=== PATIENT | female | born 1965 | race Caucasian/White ===

== ENCOUNTER 2016-08-24 08:10 | Emergency (ER) | payer BC ==
--- NOTE | 2016-08-24 09:44 | ED CLINICAL REPORT ---
Clinical Report - Physicians/Mid Levels [facility] [address] [place] [address] 08/24/2016 8:12 Patient: CAREY MORENO Time Seen: 08:21; initial patient contact. Arrived- By private vehicle. Historian- patient. HISTORY OF PRESENT ILLNESS Chief Complaint: CHEST PAIN. It is described as aching and it is described as located in the central chest area. No radiation. At its maximum, severity described as moderate. When seen in the E.D., severity described as moderate. Modifying factors- worsened by cough and deep breaths. Relieved by rest. This started yesterday and is still present. It was gradual in onset and has been intermittent. Onset during light activity. No nausea, vomiting, difficulty breathing or diaphoresis. Similar symptoms previously: None. Recent medical care: Not recently seen/assessed. REVIEW OF SYSTEMS The patient has had nasal congestion, a runny nose, a sore throat, fever and chills. She has had a cough and sinus pain. No pedal edema or difficulty breathing. All systems otherwise negative, except as recorded above. PAST HISTORY Abdominal Pain. Diarrhea. Immunizations. LNMP - Last Normal Menstrual Period. Anxiety Reaction. Depression. Headache. Sinus Problems. Angioplasty . ADDITIONAL SURGERIES: Angioplasty of blood vessel. Carpal Tunnel Surgery. Foot surgery. Medications: Atorvastatin Calcium Oral. Cefuroxime Axetil Oral. Cymbalta Oral. Eszopiclone Oral. Isosorbide Dinitrate ER Oral. Nitro-Time Oral. Pramipexole Dihydrochloride Oral. Lipitor Oral. Allergies: Sulfa Antibiotics. SOCIAL HISTORY Former smoker, end date 2016. ADDITIONAL NOTES The nursing notes have been reviewed with agreement regarding the chief complaint, PMH and patient medications and allergies. PHYSICAL EXAM Appearance: Alert. Oriented X3. No acute distress. Eyes: Eyes normal inspection. ENT: Moderate generalized pharyngeal erythema with right tonsillar swelling and left tonsillar swelling. The mucous membranes are not dry. Neck: No lymphadenopathy. CVS: Normal heart rate and rhythm. Heart sounds normal. Respiratory: No respiratory distress. Chest pain reproducible with palpation of the costal cartilage and with deep breathing. Moderate right upper costochondral tenderness and left upper costochondral tenderness. The tenderness reproduces the patient's subjective complaint. Breath sounds normal. Abdomen: Soft and nontender. Bowel sounds normal. No mass. Skin: Skin warm and dry. Normal skin color. No rash. Extremities: No calf tenderness. No lower extremity edema. LABS, X-RAYS, AND EKG EKG: EKG time: (0851). No acute process. No acute ischemia. Normal EKG. Normal sinus rhythm. Rate: 82. Normal P waves. Normal MOSES. Normal QRS complex. Normal axis. Normal ST and T waves, QT and QTc. Prior EKG unavailable. The study has been interpreted contemporaneously by me. The study has been independently viewed by me. The EKG appears to be a good tracing. Interpretation time: 0851. Laboratory Tests: Culture, Strep Screen: (JUANJOSE: 08/24/2016 08:30) ( MsgRcvd 08/24/2016 09:32) Final results Test Result Flag Units (Reference) RAPID STREP SCREEN - THROAT DATE: 08/24/16 NEGATIVE SCREEN: RAPID STREP SCREEN NEGATIVE; CONFIRMATION TO FOLLOW Rapid Influenza Screen: (JUANJOSE: 08/24/2016 08:30) ( [facility] 08/24/2016 09:36) Final results SPECIMEN DESCRIPTION: ... Test Result Flag Units (Reference) RAPID INFLUENZA SCREEN DATE: 08/24/16 INFLUENZA A: NEGATIVE SCREEN FOR INFLUENZA A INFLUENZA B: NEGATIVE SCREEN FOR INFLUENZA B . PROGRESS AND PROCEDURES Course of Care: 08/24/2016 09:48 O2 saturation: 96%. Vital Signs: have been reviewed. Oxygen saturation normal. Disposition: Discharged in good and improved condition. Condition: good. CLINICAL IMPRESSION Costochondritis .12 lead EKG performed. INSTRUCTIONS Your Current Medications: CONTINUE TAKING THE FOLLOWING MEDICATIONS: Atorvastatin Calcium Oral. Cefuroxime Axetil Oral. Cymbalta Oral. Eszopiclone Oral. Isosorbide Dinitrate ER Oral. Lipitor Oral. Nitro-Time Oral. Pramipexole Dihydrochloride Oral. Prescription Medications: Diclofenac 50 mg tablets: take 1 tablet orally every 8 hours as needed for pain or stiffness. Dispense twenty (20). No refill. Follow-up: Screening today revealed the patient's blood pressure to be in the normal range. (Electronically signed by Yang Burrows Dr. 08/24/2016 9:53)
--- NOTE | 2016-08-24 09:45 | ED NURSING NOTES ---
Clinical Report - Nurses [place] [address] [place] [address] 08/24/2016 8:12 Patient: CAREY MORENO TRIAGE Triage time 08:Aug 24 2016. Acuity: LEVEL 3. Chief Complaint: CHEST PAIN and DISCOMFORT. LYDIA COMA SCORE: [place] Coma Scale: 15- eyes open spontaneously (4); best verbal response- oriented x 4 (5); best motor response- obeys commands (6). --08:28 Herb Avalos R.N. 08:18 08/24/16. BP: 113/56. HR: 89. RR: 18. O2 saturation: 93%. Temp: 97.8 F. Pain level now 4/10. --08:28 Herb Avalos R.N. Weight: 77.1 kg stated. Height/Length: 62 inches Per Patient. BMI: 31.1. --08:28 Herb Avalos R.N. Medications Lipitor Oral. --08:21 Herb Avalos R.N. Pramipexole Dihydrochloride Oral. --08:22 Herb Avalos R.N. Nitro-Time Oral. --08:22 Herb Avalos R.N. Isosorbide Dinitrate ER Oral. --08:23 Herb Avalos R.N. Eszopiclone Oral. --08:23 Herb Avalos R.N. Cymbalta Oral. --08:23 Herb Avalos R.N. Cefuroxime Axetil Oral. --08:24 Herb Avalos R.N. Atorvastatin Calcium Oral. --08:24 Herb Avalos R.N. The following entry was struck by Herb Avalos R.N., 08:23 (08/24/16) Reason - other. <<STRICKEN ENTRY-- jonathanbolta . --08:20 Herb Avalos R.N. --END STRIKE>>. Allergies Sulfa Antibiotics. --08:20 Herb Avalos R.N. History Arrived by private vehicle. Historian: patient. ( Two days ago started having chest pain with discomfort. Has had a had a cold and cough treated for a sinus infection last week.). She has had mild difficulty breathing and nausea. She has had a cough productive of clear sputum. No sweating episodes, vomiting or fever. 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 PAST MEDICAL HX: Lung disease (copd). No history of diabetes mellitus. Immunizations: up-to-date. Denies current . SOCIAL HX: Former smoker- less than 1/2 a pack per day. No alcohol use or drug use. SELF HARM ASSESSMENT: A self harm assessment was performed. The patient answered "no" to the question "Have you recently felt down, depressed, or hopeless?" and "Do you have thoughts of harming or killing yourself?". ABUSE ASSESSMENT: Abuse assessment: (yes) The patient was asked "Do you feel safe in your home?". --08:28 Herb Avalos R.N. PROBLEMS: Abdominal Pain. Diarrhea. Immunizations. LNMP - Last Normal Menstrual Period. Anxiety Reaction. Depression. Headache. Sinus Problems. --08:21 Herb Avalos R.N. Angioplasty . --08:26 Herb Avalos R.N. ADDITIONAL SURGERIES: Angioplasty of blood vessel. Carpal Tunnel Surgery. Foot surgery . --08:26 Herb Avalos R.N. Interventions ID and allergy band on patient. --08:28 Herb Avalos R.N. PHYSICAL ASSESSMENT Ambulatory to room. GENERAL / NEURO / PSYCH: Alert. Appears in no acute distress. HEENT: Mucous membranes are pink. RESPIRATORY: Respirations not labored. Breath sounds within normal limits. ( center of chest tenderness). CVS: Normal sinus rhythm noted. Heart sounds within normal limits. Pulses within normal limits. Capillary refill less than 2 seconds. GI / : Abdomen soft and nontender. EXTREMITIES: No lower extremity edema. SKIN: Skin is warm and dry. Normal skin turgor. Skin is non-tender. --08:29 Herb Avalos R.N. NURSING PROGRESS NOTES The initial plan of care for this patient includes an assessment with efforts to address language barriers; patient positioning and appropriate ambient lighting; impairment of the cardiovascular and respiratory system. weighmaster lead, pulse oximeter and NIBP monitor placed on patient. Patient gowned. Reassurance given. Call light placed in reach. Side rails up x 1. Bed placed in lowest position. Brakes of bed on. --08:30 Herb Avalos R.N. EKG time: (8:51 AM). EKG was performed by a ana and shown to the ED physician. --09:02 Staci Bernstein 09:48 08/24/16. O2 saturation: 96% on room air. 09:30 08/24/16. BP: 107/50. HR: 70. RR: 18. O2 saturation: 96%. --09:53 Herb Avalos R.N. DISPOSITION / DISCHARGE Condition at departure: unchanged. No learning barriers present. Discharge instructions provided and reviewed with the patient. Reviewed warnings. Reviewed medication(s). Treatments reviewed. Reviewed referrals. Patient verbalized understanding. Written instructions provided in Latvian. The patient was discharged home. She left the Emergency Department ambulatory and via private vehicle. Patient driving. --09:51 Herb Avalos R.N. 09:50 08/24/16. BP: 103/65. HR: 75. RR: 18. O2 saturation: 96%. Temp: 98.4 F. Pain level now 5/10. --09:51 Herb Avalos R.N. Departure time: 09:56 Aug 24 2016. --09:56 Herb Avalos R.N. Locked/Released at 08/24/2016 9:56 by Herb Avalos R.N.
--- NOTE | 2016-08-24 09:45 | ED NURSING NOTES ---
Clinical Report - Nurses [place] [address] [place] [address] 08/24/2016 8:12 Patient: CAREY MORENO TRIAGE Triage time 08:Aug 24 2016. Acuity: LEVEL 3. Chief Complaint: CHEST PAIN and DISCOMFORT. LYDIA COMA SCORE: [place] Coma Scale: 15- eyes open spontaneously (4); best verbal response- oriented x 4 (5); best motor response- obeys commands (6). --08:28 Herb Avalos R.N. 08:18 08/24/16. BP: 113/56. HR: 89. RR: 18. O2 saturation: 93%. Temp: 97.8 F. Pain level now 4/10. --08:28 Herb Avalos R.N. Weight: 77.1 kg stated. Height/Length: 62 inches Per Patient. BMI: 31.1. --08:28 Herb Avalos R.N. Medications Lipitor Oral. --08:21 Herb Avalos R.N. Pramipexole Dihydrochloride Oral. --08:22 Herb Avalos R.N. Nitro-Time Oral. --08:22 Herb Avalos R.N. Isosorbide Dinitrate ER Oral. --08:23 Herb Avalos R.N. Eszopiclone Oral. --08:23 Herb Avalos R.N. Cymbalta Oral. --08:23 Herb Avalos R.N. Cefuroxime Axetil Oral. --08:24 Herb Avalos R.N. Atorvastatin Calcium Oral. --08:24 Herb Avalos R.N. The following entry was struck by Herb Avalos R.N., 08:23 (08/24/16) Reason - other. <<STRICKEN ENTRY-- jonathanbolta . --08:20 Herb Avalos R.N. --END STRIKE>>. Allergies Sulfa Antibiotics. --08:20 Herb Avalos R.N. History Arrived by private vehicle. Historian: patient. ( Two days ago started having chest pain with discomfort. Has had a had a cold and cough treated for a sinus infection last week.). She has had mild difficulty breathing and nausea. She has had a cough productive of clear sputum. No sweating episodes, vomiting or fever. 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 PAST MEDICAL HX: Lung disease (copd). No history of diabetes mellitus. Immunizations: up-to-date. Denies current . SOCIAL HX: Former smoker- less than 1/2 a pack per day. No alcohol use or drug use. SELF HARM ASSESSMENT: A self harm assessment was performed. The patient answered "no" to the question "Have you recently felt down, depressed, or hopeless?" and "Do you have thoughts of harming or killing yourself?". ABUSE ASSESSMENT: Abuse assessment: (yes) The patient was asked "Do you feel safe in your home?". --08:28 Herb Avalos R.N. PROBLEMS: Abdominal Pain. Diarrhea. Immunizations. LNMP - Last Normal Menstrual Period. Anxiety Reaction. Depression. Headache. Sinus Problems. --08:21 Herb Avalos R.N. Angioplasty . --08:26 Herb Avalos R.N. ADDITIONAL SURGERIES: Angioplasty of blood vessel. Carpal Tunnel Surgery. Foot surgery . --08:26 Herb Avalos R.N. Interventions ID and allergy band on patient. --08:28 Herb Avalos R.N. PHYSICAL ASSESSMENT Ambulatory to room. GENERAL / NEURO / PSYCH: Alert. Appears in no acute distress. HEENT: Mucous membranes are pink. RESPIRATORY: Respirations not labored. Breath sounds within normal limits. ( center of chest tenderness). CVS: Normal sinus rhythm noted. Heart sounds within normal limits. Pulses within normal limits. Capillary refill less than 2 seconds. GI / : Abdomen soft and nontender. EXTREMITIES: No lower extremity edema. SKIN: Skin is warm and dry. Normal skin turgor. Skin is non-tender. --08:29 Herb Avalos R.N. NURSING PROGRESS NOTES The initial plan of care for this patient includes an assessment with efforts to address language barriers; patient positioning and appropriate ambient lighting; impairment of the cardiovascular and respiratory system. precise winder, pulse oximeter and NIBP monitor placed on patient. Patient gowned. Reassurance given. Call light placed in reach. Side rails up x 1. Bed placed in lowest position. Brakes of bed on. --08:30 Herb Avalos R.N. EKG time: (8:51 AM). EKG was performed by a ana and shown to the ED physician. --09:02 Staci Bernstein 09:48 08/24/16. O2 saturation: 96% on room air. 09:30 08/24/16. BP: 107/50. HR: 70. RR: 18. O2 saturation: 96%. --09:53 Herb Avalos R.N. DISPOSITION / DISCHARGE Condition at departure: unchanged. No learning barriers present. Discharge instructions provided and reviewed with the patient. Reviewed warnings. Reviewed medication(s). Treatments reviewed. Reviewed referrals. Patient verbalized understanding. Written instructions provided in Italian. The patient was discharged home. She left the Emergency Department ambulatory and via private vehicle. Patient driving. --09:51 Herb Avalos R.N. 09:50 08/24/16. BP: 103/65. HR: 75. RR: 18. O2 saturation: 96%. Temp: 98.4 F. Pain level now 5/10. --09:51 Herb Avalos R.N. Departure time: 09:56 Aug 24 2016. --09:56 Herb Avalos R.N. Locked/Released at 08/24/2016 9:56 by Herb Avalos R.N.
--- NOTE | 2016-08-24 09:45 | ED ORDER SUMMARY ---
..... Patient: CAREY MORENO OrderSheet [facility] VisitID: [id number] [address] [place] [address] 51y, F Registration Date/Time: 08/24/2016 ORDER SHEET Weight: 77.1 kg (stated) Allergies: Sulfa Antibiotics GENERAL ORDERS: Rapid Influenza Screen (Nasal Pharyngeal) (...) Urgent (09:14 08/24/2016 Araceli Georges) (Ack 9:17 [facility]) Culture, Strep Screen Urgent (09:14 08/24/2016 Araceli Georges) ([facility] 9:17 [facility]) MEDICATION ORDERS: IV FLUIDS: ORDER SHEET NOTES: [Electronically signed by Yang Burrows Dr. (09:53 08/24/2016)] [Electronically signed by Herb Avalos R.N. (09:56 08/24/2016)] [Electronically locked/signed by Herb Avalos R.N. (09:56 08/24/2016)]
--- NOTE | 2016-08-24 09:45 | ED ORDER SUMMARY ---
..... Patient: CAREY MORENO OrderSheet [facility] VisitID: [id number] [address] [place] [address] 51y, F Registration Date/Time: 08/24/2016 ORDER SHEET Weight: 77.1 kg (stated) Allergies: Sulfa Antibiotics GENERAL ORDERS: Rapid Influenza Screen (Nasal Pharyngeal) (...) Urgent (09:14 08/24/2016 Araceli Georges) (Ack 9:17 [facility]) Culture, Strep Screen Urgent (09:14 08/24/2016 Araceli Georges) ([facility] 9:17 [facility]) MEDICATION ORDERS: IV FLUIDS: ORDER SHEET NOTES: [Electronically signed by Yang Burrows Dr. (09:53 08/24/2016)] [Electronically signed by Herb Avalos R.N. (09:56 08/24/2016)] [Electronically locked/signed by Herb Avalos R.N. (09:56 08/24/2016)]
--- NOTE | 2016-08-24 09:57 | ED DISCHARGE INSTRUCTIONS ---
Patient: CAREY MORENO General Instructions [facility] VisitID: [id number] [place] [address] 51y, F Registration Date/Time: 08/24/2016 Costochondritis .12 lead EKG performed. INSTRUCTIONS Your Current Medications: CONTINUE TAKING THE FOLLOWING MEDICATIONS: Atorvastatin Calcium Oral. Cefuroxime Axetil Oral. Cymbalta Oral. Eszopiclone Oral. Isosorbide Dinitrate ER Oral. Lipitor Oral. Nitro-Time Oral. Pramipexole Dihydrochloride Oral. Prescription Medications: Diclofenac 50 mg tablets: take 1 tablet orally every 8 hours as needed for pain or stiffness. Dispense twenty (20). No refill. Follow-up: Screening today revealed the patient's blood pressure to be in the normal range. ADDITIONAL INFORMATION Chest Wall Pain: Costochondritis The chest pain that you have had today is caused by Costochondritis. This condition is due to an inflammation of the cartilage joining the ribs to the breastbone. It is not caused by heart or lung problems. Although the exact cause for costochondritis is not known, it often occurs during times of emotional stress. It can be painful, but it is not dangerous. It usually disappears within one to two weeks, but may recur. Rarely, a more serious condition may cause symptoms similar to costochondritis; therefore, watch for the warning signs listed below. Home Care: If you feel that emotional stress is a cause of your condition, try to identify sources of that stress. It may not be obvious! Learn ways to deal with the stress in your life such as regular exercise, muscle relaxation, meditation, or simply taking time out for yourself. For more information about this, consult your doctor or go to a local bookstore and review books and tapes available on the subject of stress reduction. You may use acetaminophen (Tylenol) or ibuprofen (Motrin, Advil) to control pain, unless another pain medicine was prescribed. [ NOTE: If you have liver disease or ever had a stomach ulcer, talk with your doctor before using these medicines.] The use of heat (hot wet compress or heating pad) with or without local analgesic creams (Deep Heat Rub, Quinten Whittaker) will be helpful to reduce pain. Follow Up with your doctor as directed or sooner if you do not start to improve within the next two days. Get Prompt Medical Attention if any of the following occur: A change in the type of pain: if it feels different, becomes more severe, lasts longer, or spreads into your shoulder, arm, neck, jaw or back Shortness of breath or increased pain with breathing Weakness, dizziness, or fainting Cough with dark colored sputum (phlegm) or blood Abdominal pain Dark red or black stools Fever of 100.4F (38C) or higher, or as directed by your healthcare provider You have been given the following additional information: Chest Wall Pain, Costochondritis (Electronically signed by Yang Burrows Dr. 08/24/2016 9:53)
--- NOTE | 2016-08-24 09:57 | ED MED RECONCILIATION SUMMARY ---
Patient: CAREY MORENO Medication Reconciliation Report [facility] VisitID: [id number] [address] [place] [address] 51y, F Registration Date/Time: 08/24/2016 Weight: 77.1 kg Height/Length: 62 in. BMI: 31.1 ALLERGIES: Sulfa Antibiotics The patient's Home Medications are listed below: CONTINUE TAKING THE FOLLOWING MEDICATIONS: Atorvastatin Calcium Oral Cefuroxime Axetil Oral Cymbalta Oral Eszopiclone Oral Isosorbide Dinitrate ER Oral Lipitor Oral Nitro-Time Oral Pramipexole Dihydrochloride Oral The source(s) of the original Home Medication information: Not obtained. The following Medications were given to the patient in the Emergency Department: None. The following Medications were prescribed to the patient: Diclofenac 50 mg tablets: take 1 tablet orally every 8 hours as needed for pain or stiffness. Dispense twenty (20). No refill. -- Yang Burrows Dr.
--- NOTE | 2016-08-24 09:57 | ED MAR SUMMARY ---
..... Medication Administration Record [facility] [address] [place], [place] [id number] Patient: CAREY MORENO Christian[facility] Visit ID: [id number] 51y, F Weight: 77.1 kg Height/Length: 62 in BMI: 31.1 ALLERGIES: Sulfa Antibiotics
--- NOTE | 2016-08-24 09:57 | ED MED RECONCILIATION SUMMARY ---
Patient: CAREY MORENO Medication Reconciliation Report [facility] VisitID: [id number] [address] [place] [address] 51y, F Registration Date/Time: 08/24/2016 Weight: 77.1 kg Height/Length: 62 in. BMI: 31.1 ALLERGIES: Sulfa Antibiotics The patient's Home Medications are listed below: CONTINUE TAKING THE FOLLOWING MEDICATIONS: Atorvastatin Calcium Oral Cefuroxime Axetil Oral Cymbalta Oral Eszopiclone Oral Isosorbide Dinitrate ER Oral Lipitor Oral Nitro-Time Oral Pramipexole Dihydrochloride Oral The source(s) of the original Home Medication information: Not obtained. The following Medications were given to the patient in the Emergency Department: None. The following Medications were prescribed to the patient: Diclofenac 50 mg tablets: take 1 tablet orally every 8 hours as needed for pain or stiffness. Dispense twenty (20). No refill. -- Yang Burrows Dr.
--- NOTE | 2016-08-24 09:57 | ED MAR SUMMARY ---
..... Medication Administration Record [facility] [address] [place], [place] [id number] Patient: CAREY MORENO Christiano Visit ID: [id number] 51y, F Weight: 77.1 kg Height/Length: 62 in BMI: 31.1 ALLERGIES: Sulfa Antibiotics
== END 2016-08-24 09:55 | disposition home or self-care (01) ==
LOC: ED SRH 08:10
DX: M94.0 Chondrocostal junction syndrome [Tietze] (principal); Z87.891 Personal history of nicotine dependence; Z88.2 Allergy status to sulfonamides
CPT/HCPCS: 90154; 90159; 91400

== ENCOUNTER 2016-10-19 21:27 | Emergency (ER) | payer BC ==
--- NOTE | 2016-10-19 23:01 | DIAGNOSTIC IMAGING REPORT ---
PROCEDURE: XR CHEST 2 VIEW INDICATION: CHEST PAIN TECHNIQUE: PA and lateral views. COMPARISON: Compared to chest x-rays on 02/07/2011 and 05/08/2010. FINDINGS: Lungs are clear. Heart and mediastinum are normal. Thorax is normal. IMPRESSION: 1. Negative chest.
--- NOTE | 2016-10-19 23:28 | ED ORDER SUMMARY ---
..... Patient: CAREY MORENO OrderSheet [facility] VisitID: [id number] [place] [address] 51y, F Registration Date/Time: 10/19/2016 ORDER SHEET Weight: 77.1 kg (stated) Allergies: Sulfa Antibiotics GENERAL ORDERS: Residential Property Manager (Continuous) (CP) (21:32 10/19/2016 Mary Georges) (21:44 JDeElentamera R.N.) EKG - ER Stat (21:33 10/19/2016 Mary Georges) (21:38 AMcQuoid ER Tech1) Pulse oximeter (21:33 10/19/2016 Mary Georges) (21:44 JDeElena R.N.) Chest 2V Urgent (21:56 10/19/2016 Mary Georges) (Ack 21:57 AMcQuoid ER Tech1) (22:06 MCampbell) CBC w Diff Urgent (21:56 10/19/2016 Mary Georges) (Ack 21:57 AMcQuoid ER Tech1) (22:32 KKnebel R.N.) CMP Urgent (21:56 10/19/2016 Mary Georges) (Ack 21:57 AMcQuoid ER Tech1) (22:32 KKnebel R.N.) D-Dimer Urgent (21:56 10/19/2016 Mary Georges) (Ack 21:57 AMcQuoid ER Tech1) (22:32 KKnebel R.N.) Troponin-I Urgent (21:56 10/19/2016 Mary Georges) (Ack 21:57 AMcQuoid ER Tech1) (22:32 KKnebel R.N.) UA-Culture if indicated Urgent (21:56 10/19/2016 Mary Georges) (Ack 21:57 AMcQuoid ER Tech1) (22:40 KKnebel R.N.) Urine Urgent (21:56 10/19/2016 Mary Georges) (Ack 21:57 AMcQuoid ER Tech1) (22:40 KKnebel R.N.) MEDICATION ORDERS: IV FLUIDS: IV Saline Lock (21:56 10/19/2016 Mary Georges) (22:51 Jordan Mccoy) ORDER SHEET NOTES: [Electronically signed by Quentin Dia R.N. (23:41 10/19/2016)] [Electronically signed by Castillo Mayo Dr. (02:54 10/22/2016)] [Electronically locked/signed by Quentin Dia R.N. (23:41 10/19/2016)]
--- NOTE | 2016-10-19 23:28 | ED NURSING NOTES ---
Clinical Report - Nurses Formerly [facility] [address] [place] [address] 10/19/2016 21:27 Patient: CAREY MORENO TRIAGE Triage time 21:Oct 19 2016. Acuity: LEVEL 3. Chief Complaint: CHEST PAIN. Alert. No acute distress. --21:38 Sharon Ro R.N. 21:32 10/19/16. BP: 144/83. HR: 87. RR: 16. O2 saturation: 98%. Temp: 98.1 F. --21:38 Sharon Ro R.N. LYDIA COMA SCORE: [place] Coma Scale: 15- eyes open spontaneously (4); best verbal response- oriented x 4 (5); best motor response- obeys commands (6). --22:48 Sharon Ro R.N. Weight: 77.1 kg stated. Height/Length: 62 inches Per Patient. BMI: 31.1. --22:47 Sharon Ro R.N. Medications Cymbalta Oral. --21:33 Sharon Ro R.N. Isosorbide Mononitrate Oral. --21:34 Sharon Ro R.N. Lipitor Oral. --21:34 Sharon Ro R.N. Pramipexole Dihydrochloride ER Oral. --21:34 Sharon Ro R.N. Medication/allergy information source: the patient. --21:38 Sharon Ro R.N. Allergies Sulfa Antibiotics. --21:35 Sharon Ro R.N. History Arrived by private vehicle. Historian: patient. Accompanied by family. This started today. ( left arm/shoulder pain and left side facial pain). 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 PAST MEDICAL HX: Hypertension. Heart disease. Immunizations: up-to-date. Last normal menstrual period- about 6 years ago. SOCIAL HX: Former smoker, end date 07/2016. No alcohol use or drug use. No infectious disease exposure. SELF HARM ASSESSMENT: A self harm assessment was performed. The patient answered "no" to the question "Do you have thoughts of harming or killing yourself?". FALL RISK ASSESSMENT: Fall risk assessment completed. No fall risk identified. NUTRITIONAL RISK ASSESSMENT: The nutritional risk assessment revealed no deficiencies. FUNCTIONAL ASSESSMENT: Functional assessment: no impairments noted. LEARNING NEEDS ASSESSMENT: The learning needs assessment revealed no barriers. ABUSE ASSESSMENT: Abuse assessment: The patient was asked "Do you feel safe in your home?". SKIN INTEGRITY ASSESSMENT: Skin integrity risk assessment completed. No skin integrity risk identified. --21:38 Sharon Ro R.N. PROBLEMS: Costochondritis. Lung Disease. Angioplasty . Abdominal Pain. Vomiting. Diarrhea. Immunizations. LNMP - Last Normal Menstrual Period. Anxiety Reaction. Depression. Headache. Sinus Problems. --21:35 Sharon Ro R.N. ADDITIONAL SURGERIES: Angioplasty of blood vessel. Carpal Tunnel Surgery. Foot surgery . --21:35 Sharon Ro R.N. Interventions ID band on patient. --21:38 Sharon Ro R.N. PHYSICAL ASSESSMENT GENERAL / NEURO / PSYCH: Alert. Oriented X 4. Appears in no acute distress. RESPIRATORY: Respirations not labored. CVS: Capillary refill less than 2 seconds. GI / : Abdomen nontender. EXTREMITIES: No lower extremity edema. SKIN: Skin is warm and dry. --21:39 Sharon Ro R.N. NURSING PROGRESS NOTES nuclear monitoring technician, pulse oximeter and NIBP monitor placed on patient; cardiac rehabilitation program director- Lead II; monitor alarms on. Patient gowned. Head of bed elevated. Two patient identifiers checked. Call light placed in reach. Side rails up x 1. Bed placed in lowest position. Brakes of bed on. --21:39 Sharon Ro R.N. 22:47 10/19/16. BP: 105/56. HR: 79. O2 saturation: 98%. --22:47 Sharon Ro R.N. 21:51 10/19/2016 Site #1 started via IV in the right antecubital space with an 20g angiocath, with aseptic technique and good blood return; one attempt. Blood drawn: rainbow set. Labeled in the presence of the patient and sent to the lab. Saline lock flushed with 10 mL saline. --22:51 Quentin Dia R.N. DISPOSITION / DISCHARGE Departure time: 23:41. Condition at departure: stable. The goals identified in the patient's plan of care were met. No learning barriers present. Discharge instructions provided and reviewed with the patient. Patient verbalized understanding. Written instructions provided in Khmer. ( Carey verbalizes understanding of all d/c instructions including need to f/u with PCP. She has no questions and voices no concerns at this time.). The patient was discharged by the physician. She was discharged home and accompanied by spouse. She left the Emergency Department ambulatory and via private vehicle. Spouse driving. LYDIA COMA SCORE: [place] Coma Scale: 15- eyes open spontaneously (4); best verbal response- oriented x 4 (5); best motor response- obeys commands (6). --23:41 Quentin Dia R.N. 23:40 10/19/16. BP: 105/89 (regular adult cuff) taken on the left arm, via an automated monitor, while lying. HR: 87 (regular and normal rate). RR: 18 (regular, unlabored and normal). O2 saturation: 98% on room air. Temp: 98.3 F (oral). Pain level now: 0/10. --23:41 Quentin Dia R.N. Locked/Released at 10/19/2016 23:41 by Quentin Dia R.N.
--- NOTE | 2016-10-19 23:28 | ED CLINICAL REPORT ---
Clinical Report - Physicians/Mid Levels [facility] [address] [place] [address] 10/19/2016 21:27 Patient: CAREY MORENO Time Seen: 2139. Arrived- By private vehicle. Historian- patient. HISTORY OF PRESENT ILLNESS Chief Complaint: CHEST PAIN. At its maximum, severity described as moderate. When seen in the E.D., severity described as moderate. It is described as pressure and it is described as located in the central chest area and radiating (left chest, neck, left arm). This started past 3 days and is still present (staying the same). It was abrupt in onset and has been constant but is not gone now. Onset during rest. No nausea, vomiting, difficulty breathing or diaphoresis. (no history of DVT, PE, leg swelling, hemoptysis, recent trauma, surgery, or family history of bleeding problems. Reports seeing a chemical laboratory assistant in the past. States that she has a nuclear medicine stress test ordered for in the future however is waiting on her insurance company to have the test approve.). No additional chest pain. Similar symptoms previously: Many times. Recent medical care: Not recently seen/assessed. REVIEW OF SYSTEMS No fever, chills, pedal edema, calf pain or blurred vision. No abdominal pain, black stools, difficulty with urination or bloody stools. She has had skin rash. All systems otherwise negative, except as recorded above. PAST HISTORY See nurses notes. Medications: Pramipexole Dihydrochloride ER Oral. Lipitor Oral. Isosorbide Mononitrate Oral. Cymbalta Oral. Allergies: Sulfa Antibiotics. SOCIAL HISTORY Smoker- current status unknown (states she quit 3 months ago however stated that she had a cigarette today). No alcohol use or drug use. No recent travel. Is a local resident. ADDITIONAL NOTES The nursing notes have been reviewed. PHYSICAL EXAM Vital Signs: 10/19/2016 21:32 BP: 144/83. HR: 87. RR: 16. O2 saturation: 98%. Temp: 98.1 F. Oxygen saturation normal. Appearance: Alert. Oriented X3. No acute distress. Eyes: Pupils equal, round and reactive to light. Eyes normal inspection. ENT: Ears normal. Nose normal. Pharynx normal. Neck: Normal inspection. Neck supple. No JVD. CVS: Normal heart rate and rhythm. Heart sounds normal. Pulses normal. Respiratory: No respiratory distress. Breath sounds normal. Chest nontender. No rales, rhonchi or wheezes. Abdomen: Soft and nontender. No mass. Back: Normal external inspection. Skin: Skin warm and dry. Normal skin color. No rash. Normal skin turgor. Extremities: Extremities exhibit normal ROM. No lower extremity edema. LABS, X-RAYS, AND EKG EKG: No acute process. No acute ischemia. Normal EKG. Normal sinus rhythm. Rate: 88. Normal P waves. Normal MOSES. Normal QRS complex. Normal axis. Normal ST and T waves, QT and QTc. The study has been interpreted contemporaneously. The study has been independently viewed by me. The EKG appears to be a good tracing. Chest X-ray: (PROCEDURE: XR CHEST 2 VIEW INDICATION: CHEST PAIN TECHNIQUE: PA and lateral views. COMPARISON: Compared to chest x-rays on 02/07/2011 and 05/08/2010. FINDINGS: Lungs are clear. Heart and mediastinum are normal. Thorax is normal. IMPRESSION: 1. Negative chest.). Views: PA and lateral. The X-rays were independently viewed by me and interpreted by the radiologist. The X-rays were discussed with the radiologist (via pacs). Laboratory Tests: UA-Culture if indicated: (JUANJOSE: 10/19/2016 22:35) ( MsgRcvd 10/19/2016 22:51) Final results Test Result Flag Units (Reference) URINE COLOR YELLOW URINE APPEARANCE CLEAR URINE GLUCOSE NEGATIVE (NEGATIVE) URINE BILIRUBIN NEGATIVE (NEGATIVE) URINE KETONE NEGATIVE (NEGATIVE) URINE SPECIFIC GRAVITY 1.015 (1.010-1.030) URINE PH 5.5 (5.0-8.0) URINE PROTEIN NEGATIVE (NEGATIVE) URINE UROBILINOGEN 0.2 EU/dL (0.2-1.0) URINE NITRITE NEGATIVE (NEGATIVE) URINE BLOOD NEGATIVE (NEGATIVE) URINE LEUK ESTERASE NEGATIVE (NEGATIVE) URINE RBC NONE SEEN rbc/hpf (0-1) URINE WBC 0-1 wbc/hpf (0-1) URINE EPITHELIAL CELLS 5-10 EPI/hpf (0-5) URINE BACTERIA TRACE (<1+) (NONE SEEN) URINE COMMENT CULT NOT INDICATED URINE CULTURES ARE SET-UP BASED ON THE FOLLOWING CRITERIA:POSITIVE NITRITEPOSITIVE LEUKOCYTE ESTERASEGREATER THAN 10 WHITE BLOOD CELLSMODERATE (2+) OR GREATER BACTERIA Urine: (JUANJOSE: 10/19/2016 22:35) ( WygRcvd 10/19/2016 22:45) Final results Test Result Flag Units (Reference) URINE NEGATIVE CBC w Diff: (JUANJOSE: 10/19/2016 21:40) ( [facility] 22:05) Final results Test Result Flag Units (Reference) WHITE BLOOD COUNT 11.0 K/uL (4.5-11.5) RED BLOOD COUNT 3.74 L M/uL (4.00-5.20) HEMOGLOBIN 12.4 gm/dL (12.0-16.0) HEMATOCRIT 35.7 L % (36.0-46.0) MEAN CELL VOLUME 96 fL (80-100) MEAN CORPUSCULAR HGB 33 pg (26-34) MEAN CORPUSCULAR HGB CONC 35 g/dL (31-37) RED CELL DISTRIBUTION WIDTH 12.8 % (11.6-14.8) PLATELET COUNT 369 K/uL (150-400) NEUTROPHIL % 39.3 L % (50-75) LYMPH % 49.3 H % (25-40) MONO % 9.2 % (3-14) EOSINOPHIL % 1.6 % (0-4) BASOPHIL % 0.6 % (0-2) [id number]: (JUANJOSE: 10/19/2016 21:40) ( [facility] 10/19/2016 22:09) Final results Test Result Flag Units (Reference) D-DIMER QUANTITATIVE 0.31 ug/mLFEU (0.27-0.52) The primary value of this quantitative assay relates toits negative predictive value (i.e. exclusion) of pulmonaryembolism/deep vein thrombosis/DIC.Elevated levels of d-dimer may also occur with:, age, cancer, inflammation, liver disease,post-op, infection, hematoma, coronary disease, peripheralarteriopathy, bleeding disorders and thrombolytic treatment.Results should be correlated with other clinical andradiological data.Testing Methodology: Latex Immunoassay CMP: (JUANJOSE: 10/19/2016 21:40) ( MsgRcvd 10/19/2016 22:40) Final results Test Result Flag Units (Reference) GLUCOSE 110 mg/dL (70-110) BUN 16 mg/dL (7-18) CREATININE 0.8 mg/dL (0.6-1.3) Estimated GFR >60 mL/min Estimated GFR- >60 mL/min Note: Persistent reduction over 3 months in eGFR<60 mL/min/1.73 m2 defines CKD. Patients with eGFR values>=60 mL/min/1.73 m2 may also have CKD if evidence ofpersistent proteinuria. Additional information may be foundat [email or web address]. SODIUM 139 mmol/L (136-145) POTASSIUM 3.7 mmol/L (3.5-5.1) CHLORIDE 104 mmol/L (98-107) CARBON DIOXIDE 26 mmol/L (21-32) CALCIUM 8.6 mg/dL (8.5-10.1) TOTAL PROTEIN 7.3 g/dL (6.4-8.2) ALBUMIN 3.7 g/dL (3.3-5.0) BILIRUBIN, TOTAL 0.2 mg/dL (0.0-1.0) ALKALINE PHOSPHATASE 71 U/L (46-116) AST (SGOT) 12 L U/L (15-37) ALT (SGPT) 37 U/L (12-78) TROPONIN I <0.05 L ng/mL (0.00-1.5) TROPONIN REFERENCE RANGE:<0.1 NEGATIVE0.1-1.5 INDETERMINANT>1.5 POSITIVE . PROGRESS AND PROCEDURES Course of Care: the patient is a pleasant 51-year-old female with past medical history significant for smoking presenting for a vaginal chest pain. Patient hasn't been evaluated for PE, MD, and thoracic aortic dissection. Patient does not have any significant risk factors for Pulmonary embolism except for age and smoking. Patient will be evaluatedwith a d-dimer. because of the patient's time course of her chest pain, single troponin is sufficient for evaluation of AMI. Patient is agreeable to treatment plan. All questions have been answered. Patient's workup including troponin, d-dimer, urinalysis, chest x-ray, EKG are unremarkable. In further discussion with patient, patient states that she has a stress test that has been scheduled. Patient reports that she is waiting on her insurance company to get the stress test improved. Head discussion with patient in regards to insurance companies and the need for the patient's to have her stress test performed in the Next 3 days. Do not feel patient neds admitted to the hospital this time. Disposition: Discharged. Condition: good. CLINICAL IMPRESSION Chest pain characterized as "discomfort" .12 lead EKG performed. 10/19/2016 22:47 BP: 105/56. HR: 79. O2 saturation: 98%. Blood pressure normal. Oxygen saturation normal. INSTRUCTIONS (Contact your insurance company and inform them of your visit to the emergency department and need for your stress test to done ideally in 3 days.). Warnings: GENERAL WARNINGS: Return or contact your physician immediately if your condition worsens or changes unexpectedly, if not improving as expected, or if other problems arise. SPECIFICALLY, return if you develop chest, neck, jaw, shoulder, arm, or back pain, difficulty breathing, a fluttering sensation in your chest, lightheadedness, fainting, excessive fatigue, or sudden sweating. Your Current Medications: CONTINUE TAKING THE FOLLOWING MEDICATIONS: Cymbalta Oral. Isosorbide Mononitrate Oral. Lipitor Oral. Pramipexole Dihydrochloride ER Oral. Follow-up: Return to the emergency department. Follow up with your doctor in three days. Reason for referral: recheck today's concerns. Screening today revealed the patient's blood pressure to be in the normal range. The patient should follow up with a primary care provider for blood pressure management. Understanding of the discharge instructions verbalized by patient. (Electronically signed by Castillo Mayo Dr. 10/22/2016 2:54)
--- NOTE | 2016-10-19 23:28 | ED NURSING NOTES ---
Clinical Report - Nurses [facility] [address] [place] [address] 10/19/2016 21:27 Patient: CAREY MORENO TRIAGE Triage time 21:Oct 19 2016. Acuity: LEVEL 3. Chief Complaint: CHEST PAIN. Alert. No acute distress. --21:38 Sharon Ro R.N. 21:32 10/19/16. BP: 144/83. HR: 87. RR: 16. O2 saturation: 98%. Temp: 98.1 F. --21:38 Sharon Ro R.N. LYDIA COMA SCORE: [place] Coma Scale: 15- eyes open spontaneously (4); best verbal response- oriented x 4 (5); best motor response- obeys commands (6). --22:48 Sharon Ro R.N. Weight: 77.1 kg stated. Height/Length: 62 inches Per Patient. BMI: 31.1. --22:47 Sharon Ro R.N. Medications Cymbalta Oral. --21:33 Sharon Ro R.N. Isosorbide Mononitrate Oral. --21:34 Sharon Ro R.N. Lipitor Oral. --21:34 Sharon Ro R.N. Pramipexole Dihydrochloride ER Oral. --21:34 Sharon Ro R.N. Medication/allergy information source: the patient. --21:38 Sharon Ro R.N. Allergies Sulfa Antibiotics. --21:35 Sharon Ro R.N. History Arrived by private vehicle. Historian: patient. Accompanied by family. This started today. ( left arm/shoulder pain and left side facial pain). 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 PAST MEDICAL HX: Hypertension. Heart disease. Immunizations: up-to-date. Last normal menstrual period- about 6 years ago. SOCIAL HX: Former smoker, end date 07/2016. No alcohol use or drug use. No infectious disease exposure. SELF HARM ASSESSMENT: A self harm assessment was performed. The patient answered "no" to the question "Do you have thoughts of harming or killing yourself?". FALL RISK ASSESSMENT: Fall risk assessment completed. No fall risk identified. NUTRITIONAL RISK ASSESSMENT: The nutritional risk assessment revealed no deficiencies. FUNCTIONAL ASSESSMENT: Functional assessment: no impairments noted. LEARNING NEEDS ASSESSMENT: The learning needs assessment revealed no barriers. ABUSE ASSESSMENT: Abuse assessment: The patient was asked "Do you feel safe in your home?". SKIN INTEGRITY ASSESSMENT: Skin integrity risk assessment completed. No skin integrity risk identified. --21:38 Sharon Ro R.N. PROBLEMS: Costochondritis. Lung Disease. Angioplasty . Abdominal Pain. Vomiting. Diarrhea. Immunizations. LNMP - Last Normal Menstrual Period. Anxiety Reaction. Depression. Headache. Sinus Problems. --21:35 Sharon Ro R.N. ADDITIONAL SURGERIES: Angioplasty of blood vessel. Carpal Tunnel Surgery. Foot surgery . --21:35 Sharon Ro R.N. Interventions ID band on patient. --21:38 Sharon Ro R.N. PHYSICAL ASSESSMENT GENERAL / NEURO / PSYCH: Alert. Oriented X 4. Appears in no acute distress. RESPIRATORY: Respirations not labored. CVS: Capillary refill less than 2 seconds. GI / : Abdomen nontender. EXTREMITIES: No lower extremity edema. SKIN: Skin is warm and dry. --21:39 Sharon Ro R.N. NURSING PROGRESS NOTES bridge maintenance worker, pulse oximeter and NIBP monitor placed on patient; cylindrical mixer- Lead II; monitor alarms on. Patient gowned. Head of bed elevated. Two patient identifiers checked. Call light placed in reach. Side rails up x 1. Bed placed in lowest position. Brakes of bed on. --21:39 Sharon Ro R.N. 22:47 10/19/16. BP: 105/56. HR: 79. O2 saturation: 98%. --22:47 Sharon Ro R.N. 21:51 10/19/2016 Site #1 started via IV in the right antecubital space with an 20g angiocath, with aseptic technique and good blood return; one attempt. Blood drawn: rainbow set. Labeled in the presence of the patient and sent to the lab. Saline lock flushed with 10 mL saline. --22:51 Quentin Dia R.N. DISPOSITION / DISCHARGE Departure time: 23:41. Condition at departure: stable. The goals identified in the patient's plan of care were met. No learning barriers present. Discharge instructions provided and reviewed with the patient. Patient verbalized understanding. Written instructions provided in Frisian. ( Carey verbalizes understanding of all d/c instructions including need to f/u with PCP. She has no questions and voices no concerns at this time.). The patient was discharged by the physician. She was discharged home and accompanied by spouse. She left the Emergency Department ambulatory and via private vehicle. Spouse driving. LYDIA COMA SCORE: [place] Coma Scale: 15- eyes open spontaneously (4); best verbal response- oriented x 4 (5); best motor response- obeys commands (6). --23:41 Quentin Dia R.N. 23:40 10/19/16. BP: 105/89 (regular adult cuff) taken on the left arm, via an automated monitor, while lying. HR: 87 (regular and normal rate). RR: 18 (regular, unlabored and normal). O2 saturation: 98% on room air. Temp: 98.3 F (oral). Pain level now: 0/10. --23:41 Quentin Dia R.N. Locked/Released at 10/19/2016 23:41 by Quentin Dia R.N.
--- NOTE | 2016-10-19 23:28 | ED CLINICAL REPORT ---
Clinical Report - Physicians/Mid Levels [facility] [address] [place] [address] 10/19/2016 21:27 Patient: CAREY MORENO Time Seen: 2139. Arrived- By private vehicle. Historian- patient. HISTORY OF PRESENT ILLNESS Chief Complaint: CHEST PAIN. At its maximum, severity described as moderate. When seen in the E.D., severity described as moderate. It is described as pressure and it is described as located in the central chest area and radiating (left chest, neck, left arm). This started past 3 days and is still present (staying the same). It was abrupt in onset and has been constant but is not gone now. Onset during rest. No nausea, vomiting, difficulty breathing or diaphoresis. (no history of DVT, PE, leg swelling, hemoptysis, recent trauma, surgery, or family history of bleeding problems. Reports seeing a central supply aide in the past. States that she has a nuclear medicine stress test ordered for in the future however is waiting on her insurance company to have the test approve.). No additional chest pain. Similar symptoms previously: Many times. Recent medical care: Not recently seen/assessed. REVIEW OF SYSTEMS No fever, chills, pedal edema, calf pain or blurred vision. No abdominal pain, black stools, difficulty with urination or bloody stools. She has had skin rash. All systems otherwise negative, except as recorded above. PAST HISTORY See nurses notes. Medications: Pramipexole Dihydrochloride ER Oral. Lipitor Oral. Isosorbide Mononitrate Oral. Cymbalta Oral. Allergies: Sulfa Antibiotics. SOCIAL HISTORY Smoker- current status unknown (states she quit 3 months ago however stated that she had a cigarette today). No alcohol use or drug use. No recent travel. Is a local resident. ADDITIONAL NOTES The nursing notes have been reviewed. PHYSICAL EXAM Vital Signs: 10/19/2016 21:32 BP: 144/83. HR: 87. RR: 16. O2 saturation: 98%. Temp: 98.1 F. Oxygen saturation normal. Appearance: Alert. Oriented X3. No acute distress. Eyes: Pupils equal, round and reactive to light. Eyes normal inspection. ENT: Ears normal. Nose normal. Pharynx normal. Neck: Normal inspection. Neck supple. No JVD. CVS: Normal heart rate and rhythm. Heart sounds normal. Pulses normal. Respiratory: No respiratory distress. Breath sounds normal. Chest nontender. No rales, rhonchi or wheezes. Abdomen: Soft and nontender. No mass. Back: Normal external inspection. Skin: Skin warm and dry. Normal skin color. No rash. Normal skin turgor. Extremities: Extremities exhibit normal ROM. No lower extremity edema. LABS, X-RAYS, AND EKG EKG: No acute process. No acute ischemia. Normal EKG. Normal sinus rhythm. Rate: 88. Normal P waves. Normal MOSES. Normal QRS complex. Normal axis. Normal ST and T waves, QT and QTc. The study has been interpreted contemporaneously. The study has been independently viewed by me. The EKG appears to be a good tracing. Chest X-ray: (PROCEDURE: XR CHEST 2 VIEW INDICATION: CHEST PAIN TECHNIQUE: PA and lateral views. COMPARISON: Compared to chest x-rays on 02/07/2011 and 05/08/2010. FINDINGS: Lungs are clear. Heart and mediastinum are normal. Thorax is normal. IMPRESSION: 1. Negative chest.). Views: PA and lateral. The X-rays were independently viewed by me and interpreted by the radiologist. The X-rays were discussed with the radiologist (via pacs). Laboratory Tests: UA-Culture if indicated: (JUANJOSE: 10/19/2016 22:35) ( MsgRcvd 10/19/2016 22:51) Final results Test Result Flag Units (Reference) URINE COLOR YELLOW URINE APPEARANCE CLEAR URINE GLUCOSE NEGATIVE (NEGATIVE) URINE BILIRUBIN NEGATIVE (NEGATIVE) URINE KETONE NEGATIVE (NEGATIVE) URINE SPECIFIC GRAVITY 1.015 (1.010-1.030) URINE PH 5.5 (5.0-8.0) URINE PROTEIN NEGATIVE (NEGATIVE) URINE UROBILINOGEN 0.2 EU/dL (0.2-1.0) URINE NITRITE NEGATIVE (NEGATIVE) URINE BLOOD NEGATIVE (NEGATIVE) URINE LEUK ESTERASE NEGATIVE (NEGATIVE) URINE RBC NONE SEEN rbc/hpf (0-1) URINE WBC 0-1 wbc/hpf (0-1) URINE EPITHELIAL CELLS 5-10 EPI/hpf (0-5) URINE BACTERIA TRACE (<1+) (NONE SEEN) URINE COMMENT CULT NOT INDICATED URINE CULTURES ARE SET-UP BASED ON THE FOLLOWING CRITERIA:POSITIVE NITRITEPOSITIVE LEUKOCYTE ESTERASEGREATER THAN 10 WHITE BLOOD CELLSMODERATE (2+) OR GREATER BACTERIA Urine: (JUANJOSE: 10/19/2016 22:35) ( HigRcvd 10/19/2016 22:45) Final results Test Result Flag Units (Reference) URINE NEGATIVE CBC w Diff: (JUANJOSE: 10/19/2016 21:40) ( [facility] 10/19/2016 22:05) Final results Test Result Flag Units (Reference) WHITE BLOOD COUNT 11.0 K/uL (4.5-11.5) RED BLOOD COUNT 3.74 L M/uL (4.00-5.20) HEMOGLOBIN 12.4 gm/dL (12.0-16.0) HEMATOCRIT 35.7 L % (36.0-46.0) MEAN CELL VOLUME 96 fL (80-100) MEAN CORPUSCULAR HGB 33 pg (26-34) MEAN CORPUSCULAR HGB CONC 35 g/dL (31-37) RED CELL DISTRIBUTION WIDTH 12.8 % (11.6-14.8) PLATELET COUNT 369 K/uL (150-400) NEUTROPHIL % 39.3 L % (50-75) LYMPH % 49.3 H % (25-40) MONO % 9.2 % (3-14) EOSINOPHIL % 1.6 % (0-4) BASOPHIL % 0.6 % (0-2) [id number]: (JUANJOSE: 10/19/2016 21:40) ( [facility] 10/19/2016 22:09) Final results Test Result Flag Units (Reference) D-DIMER QUANTITATIVE 0.31 ug/mLFEU (0.27-0.52) The primary value of this quantitative assay relates toits negative predictive value (i.e. exclusion) of pulmonaryembolism/deep vein thrombosis/DIC.Elevated levels of d-dimer may also occur with:, age, cancer, inflammation, liver disease,post-op, infection, hematoma, coronary disease, peripheralarteriopathy, bleeding disorders and thrombolytic treatment.Results should be correlated with other clinical andradiological data.Testing Methodology: Latex Immunoassay CMP: (JUANJOSE: 10/19/2016 21:40) ( MsgRcvd 10/19/2016 22:40) Final results Test Result Flag Units (Reference) GLUCOSE 110 mg/dL (70-110) BUN 16 mg/dL (7-18) CREATININE 0.8 mg/dL (0.6-1.3) Estimated GFR >60 mL/min Estimated GFR- >60 mL/min Note: Persistent reduction over 3 months in eGFR<60 mL/min/1.73 m2 defines CKD. Patients with eGFR values>=60 mL/min/1.73 m2 may also have CKD if evidence ofpersistent proteinuria. Additional information may be foundat [email or web address].org. SODIUM 139 mmol/L (136-145) POTASSIUM 3.7 mmol/L (3.5-5.1) CHLORIDE 104 mmol/L (98-107) CARBON DIOXIDE 26 mmol/L (21-32) CALCIUM 8.6 mg/dL (8.5-10.1) TOTAL PROTEIN 7.3 g/dL (6.4-8.2) ALBUMIN 3.7 g/dL (3.3-5.0) BILIRUBIN, TOTAL 0.2 mg/dL (0.0-1.0) ALKALINE PHOSPHATASE 71 U/L (46-116) AST (SGOT) 12 L U/L (15-37) ALT (SGPT) 37 U/L (12-78) TROPONIN I <0.05 L ng/mL (0.00-1.5) TROPONIN REFERENCE RANGE:<0.1 NEGATIVE0.1-1.5 INDETERMINANT>1.5 POSITIVE . PROGRESS AND PROCEDURES Course of Care: the patient is a pleasant 51-year-old female with past medical history significant for smoking presenting for a vaginal chest pain. Patient hasn't been evaluated for PE, IL, and thoracic aortic dissection. Patient does not have any significant risk factors for Pulmonary embolism except for age and smoking. Patient will be evaluatedwith a d-dimer. because of the patient's time course of her chest pain, single troponin is sufficient for evaluation of AMI. Patient is agreeable to treatment plan. All questions have been answered. Patient's workup including troponin, d-dimer, urinalysis, chest x-ray, EKG are unremarkable. In further discussion with patient, patient states that she has a stress test that has been scheduled. Patient reports that she is waiting on her insurance company to get the stress test improved. Head discussion with patient in regards to insurance companies and the need for the patient's to have her stress test performed in the Next 3 days. Do not feel patient neds admitted to the hospital this time. Disposition: Discharged. Condition: good. CLINICAL IMPRESSION Chest pain characterized as "discomfort" .12 lead EKG performed. 10/19/2016 22:47 BP: 105/56. HR: 79. O2 saturation: 98%. Blood pressure normal. Oxygen saturation normal. INSTRUCTIONS (Contact your insurance company and inform them of your visit to the emergency department and need for your stress test to done ideally in 3 days.). Warnings: GENERAL WARNINGS: Return or contact your physician immediately if your condition worsens or changes unexpectedly, if not improving as expected, or if other problems arise. SPECIFICALLY, return if you develop chest, neck, jaw, shoulder, arm, or back pain, difficulty breathing, a fluttering sensation in your chest, lightheadedness, fainting, excessive fatigue, or sudden sweating. Your Current Medications: CONTINUE TAKING THE FOLLOWING MEDICATIONS: Cymbalta Oral. Isosorbide Mononitrate Oral. Lipitor Oral. Pramipexole Dihydrochloride ER Oral. Follow-up: Return to the emergency department. Follow up with your doctor in three days. Reason for referral: recheck today's concerns. Screening today revealed the patient's blood pressure to be in the normal range. The patient should follow up with a primary care provider for blood pressure management. Understanding of the discharge instructions verbalized by patient. (Electronically signed by Castillo Mayo Dr. 10/22/2016 2:54)
--- NOTE | 2016-10-19 23:28 | ED ORDER SUMMARY ---
..... Patient: CAREY MORENO OrderSheet [facility] VisitID: [id number] [place] [address] 51y, F Registration Date/Time: 10/19/2016 ORDER SHEET Weight: 77.1 kg (stated) Allergies: Sulfa Antibiotics GENERAL ORDERS: Vice President Digital Strategist (Continuous) (CP) (21:32 10/19/2016 Mary Georges) (21:44 JDeElentamera R.N.) EKG - ER Stat (21:33 10/19/2016 Mary Georges) (21:38 AMcQuoid ER Tech1) Pulse oximeter (21:33 10/19/2016 Mary Georges) (21:44 JDeElena R.N.) Chest 2V Urgent (21:56 10/19/2016 Mary Georges) (Ack 21:57 AMcQuoid ER Tech1) (22:06 MCampbell) CBC w Diff Urgent (21:56 10/19/2016 Mary Georges) (Ack 21:57 AMcQuoid ER Tech1) (22:32 KKnebel R.N.) CMP Urgent (21:56 10/19/2016 Mary Georges) (Ack 21:57 AMcQuoid ER Tech1) (22:32 KKnebel R.N.) D-Dimer Urgent (21:56 10/19/2016 Mary Georges) (Ack 21:57 AMcQuoid ER Tech1) (22:32 KKnebel R.N.) Troponin-I Urgent (21:56 10/19/2016 Mary Georges) (Ack 21:57 AMcQuoid ER Tech1) (22:32 KKnebel R.N.) UA-Culture if indicated Urgent (21:56 10/19/2016 Mary Georges) (Ack 21:57 AMcQuoid ER Tech1) (22:40 KKnebel R.N.) Urine Urgent (21:56 10/19/2016 Mary Georges) (Ack 21:57 AMcQuoid ER Tech1) (22:40 KKnebel R.N.) MEDICATION ORDERS: IV FLUIDS: IV Saline Lock (21:56 10/19/2016 Mary Georges) (22:51 Jordan Mccoy) ORDER SHEET NOTES: [Electronically signed by Quentin Dia R.N. (23:41 10/19/2016)] [Electronically signed by Castillo Mayo Dr. (02:54 10/22/2016)] [Electronically locked/signed by Quentin Dia R.N. (23:41 10/19/2016)]
--- NOTE | 2016-10-22 02:55 | ED MED RECONCILIATION SUMMARY ---
Patient: TIFFANIE CAREY Christiano Medication Reconciliation Report [facility] VisitID: [id number] [address] [place] [address] 51y, F Registration Date/Time: 10/19/2016 Weight: 77.1 kg Height/Length: 62 in. BMI: 31.1 ALLERGIES: Sulfa Antibiotics The patient's Home Medications are listed below: CONTINUE TAKING THE FOLLOWING MEDICATIONS: Cymbalta Oral Isosorbide Mononitrate Oral Lipitor Oral Pramipexole Dihydrochloride ER Oral The source(s) of the original Home Medication information: patient The following Medications were given to the patient in the Emergency Department: None. The following Medications were prescribed to the patient: None.
--- NOTE | 2016-10-22 02:55 | ED DISCHARGE INSTRUCTIONS ---
Patient: CAREY MORENO General Instructions [facility] VisitID: [id number] [place] [address] 51y, F Registration Date/Time: 10/19/2016 Chest pain characterized as "discomfort" .12 lead EKG performed. 10/19/2016 22:47 BP: 105/56. HR: 79. O2 saturation: 98%. Blood pressure normal. Oxygen saturation normal. INSTRUCTIONS (Contact your insurance company and inform them of your visit to the emergency department and need for your stress test to done ideally in 3 days.). Warnings: GENERAL WARNINGS: Return or contact your physician immediately if your condition worsens or changes unexpectedly, if not improving as expected, or if other problems arise. SPECIFICALLY, return if you develop chest, neck, jaw, shoulder, arm, or back pain, difficulty breathing, a fluttering sensation in your chest, lightheadedness, fainting, excessive fatigue, or sudden sweating. Your Current Medications: CONTINUE TAKING THE FOLLOWING MEDICATIONS: Cymbalta Oral. Isosorbide Mononitrate Oral. Lipitor Oral. Pramipexole Dihydrochloride ER Oral. Follow-up: Return to the emergency department. Follow up with your doctor in three days. Reason for referral: recheck today's concerns. Screening today revealed the patient's blood pressure to be in the normal range. The patient should follow up with a primary care provider for blood pressure management. Understanding of the discharge instructions verbalized by patient. (Electronically signed by Castillo Mayo Dr. 10/22/2016 2:54)
--- NOTE | 2016-10-22 02:55 | ED MAR SUMMARY ---
..... Medication Administration Record [facility] [address] [place], [place] [id number] Patient: CAREY MORENO Christiano Visit ID: [id number] 51y, F Weight: 77.1 kg Height/Length: 62 in BMI: 31.1 ALLERGIES: Sulfa Antibiotics
--- NOTE | 2016-10-22 02:55 | ED MAR SUMMARY ---
..... Medication Administration Record [facility] [address] [place], [place] [id number] Patient: CAREY MORENO Christiano Visit ID: [id number] 51y, F Weight: 77.1 kg Height/Length: 62 in BMI: 31.1 ALLERGIES: Sulfa Antibiotics
--- NOTE | 2016-10-22 02:55 | ED MED RECONCILIATION SUMMARY ---
Patient: TIFFANIE CAREY Christiano Medication Reconciliation Report [facility] VisitID: [id number] [address] [place] [address] 51y, F Registration Date/Time: 10/19/2016 Weight: 77.1 kg Height/Length: 62 in. BMI: 31.1 ALLERGIES: Sulfa Antibiotics The patient's Home Medications are listed below: CONTINUE TAKING THE FOLLOWING MEDICATIONS: Cymbalta Oral Isosorbide Mononitrate Oral Lipitor Oral Pramipexole Dihydrochloride ER Oral The source(s) of the original Home Medication information: patient The following Medications were given to the patient in the Emergency Department: None. The following Medications were prescribed to the patient: None.
--- NOTE | 2016-10-22 02:55 | ED DISCHARGE INSTRUCTIONS ---
Patient: CAREY MORENO General Instructions [facility] VisitID: [id number] [place] [address] 51y, F Registration Date/Time: 10/19/2016 Chest pain characterized as "discomfort" .12 lead EKG performed. 10/19/2016 22:47 BP: 105/56. HR: 79. O2 saturation: 98%. Blood pressure normal. Oxygen saturation normal. INSTRUCTIONS (Contact your insurance company and inform them of your visit to the emergency department and need for your stress test to done ideally in 3 days.). Warnings: GENERAL WARNINGS: Return or contact your physician immediately if your condition worsens or changes unexpectedly, if not improving as expected, or if other problems arise. SPECIFICALLY, return if you develop chest, neck, jaw, shoulder, arm, or back pain, difficulty breathing, a fluttering sensation in your chest, lightheadedness, fainting, excessive fatigue, or sudden sweating. Your Current Medications: CONTINUE TAKING THE FOLLOWING MEDICATIONS: Cymbalta Oral. Isosorbide Mononitrate Oral. Lipitor Oral. Pramipexole Dihydrochloride ER Oral. Follow-up: Return to the emergency department. Follow up with your doctor in three days. Reason for referral: recheck today's concerns. Screening today revealed the patient's blood pressure to be in the normal range. The patient should follow up with a primary care provider for blood pressure management. Understanding of the discharge instructions verbalized by patient. (Electronically signed by Castillo Mayo Dr. 10/22/2016 2:54)
== END 2016-10-19 23:41 | disposition home or self-care (01) ==
LOC: ED SRH 21:27
DX: R07.89 Other chest pain (principal); Z79.899 Other long term (current) drug therapy; Z88.2 Allergy status to sulfonamides
CPT/HCPCS: 90004; 90100; 90616; 91556; 93070; 95059